=== PATIENT | male | born 1985 | race African-American/Black ===

== ENCOUNTER 2019-04-29 04:32 | Emergency (ER) | payer SELFPAY ==
[~2019-04-29] VITALS: Ht 157.5 cm; Wt 71.4 kg
[2019-04-29 04:34] VITALS: Ht 157.5 cm; Wt 71.4 kg
[2019-04-29 06:06] LABS: ALBUMIN 3.5 g/dL (3.4-5.0); CARBON DIOXIDE 30.4 mmol/L (21-32); CHLORIDE SERUM 101 mmol/L (98-107); CREATININE SERUM 1.3 mg/dL (0.7-1.3); GFR1 > 60 mL/min; GLUCOSE SERUM 124 mg/dL (74-106); SODIUM SERUM 139 mmol/L (136-145); TOTAL PROTEIN, SERUM 7.6 g/dL (6.4-8.2)
[2019-04-29 06:07] LABS: ALKALINE PHOSPHATASE 75 U/L (46-116); ALT/SGPT 27 U/L (16-63); AST/SGOT 24 U/L (15-37); BILIRUBIN TOTAL 0.34 mg/dL (0.20-1.00); CALCIUM 9.1 mg/dL (8.5-10.1)
[2019-04-29 07:18] LABS: BASOPHIL % 0.2 % (0-2); PLATELET COUNT 256 x10^3mcL (130-400); RED CELL DISTRIBUTION WIDTH 12.8 % (11.5-14.5)
[2019-04-29 08:49] VITALS: BP 101/62
== END 2019-04-29 08:49 | disposition home or self-care (01) ==
LOC: ED 04:32
PROVIDERS: Emergency Medicine
DX: R51 Headache (principal); R11.0 Nausea; R63.0 Anorexia
CPT/HCPCS: 87804; J1885; J2270; J2405; J2765; J7030